=== PATIENT | female | born 1985 | race Caucasian/White ===

== ENCOUNTER → 2020-12-28 13:35 | Outpatient (BNVA) | payer BC, SELFPAY | PROVIDERS: Family Provider Family Medicine; PCP Family Medicine; Visit Provider Internal Medicine | DX: E03.9 Hypothyroidism, unspecified (principal); E04.1 Nontoxic single thyroid nodule; E55.9 Vitamin D deficiency, unspecified; M79.10 Myalgia, unspecified site | CPT/HCPCS: 99204 ==

== ENCOUNTER 2020-12-28 14:56 | Outpatient (CLI) | payer BC, SELFPAY ==
[2020-12-28 16:02] LABS: 25 Hydroxy Vitamin D 7 ng/mL (30-100); Thyroid Stimulating Hormone 1.54 uIU/mL (0.27-4.20)
[2020-12-28 22:00] LABS: Free T4 Free Thyroxine 1.39 ng/dL (0.82-1.77)
== END 2020-12-28 14:57 | disposition home or self-care (01) ==
PROVIDERS: PCP Family Medicine; Visit Provider Internal Medicine
DX: E03.9 Hypothyroidism, unspecified (principal); E04.1 Nontoxic single thyroid nodule
CPT/HCPCS: 36415; 82306; 84439; 84443

== ENCOUNTER 2021-04-04 08:54 | Outpatient (CLI) | payer BC, SELFPAY ==
--- NOTE | 2021-04-04 08:59 | MR_ITS ---
WS: [id number] MRI HEAD WITH CONTRAST WITH ATTENTION TO THE INTERNAL AUDITORY CANALS TECHNIQUE: Sagittal T1, T2 axial, T2 axial flair, axial susceptibility weighted imaging, axial diffus ion weighted images, and coronal T2 images were obtained. Pre and post T1 axial and post T1 coronal i mages. ADC and FSPGR images. Post gadolinium images with attention to the internal auditory canals. A xial fiesta imaging. CLINICAL INFORMATION: DIZZINESS AND GIDDINESS COMPARISON: None. FINDINGS: No evidence of restricted diffusion to suggest acute ischemia. Ventricular system and basal cisterns are patent. A few incidental tiny foci of T2 hyperintensity in the left frontal periventricular white matter. No other suspicious intracranial signal abnormalities. Normal posterior fossa. Normal vascul ar flow voids at the skull base. No extra-axial fluid collections. No evidence of mass or mass effect . Paranasal sinuses and mastoid air cells well aerated. No hemosiderin on the susceptibly weighted im ages. Proximal 7th and 8th cranial nerves are normal in appearance. Normal trigeminal nerve root entry zone s. No evidence of enhancing IAC or CP angle mass. Normal optic chiasm and pituitary infundibulum. Nor mal cavernous sinuses and Meckel's cave. No abnormal gadolinium enhancement. Normal visualized dural venous sinuses. MR/MR iac's wo/w con* [id number] IMPRESSION: 1. No evidence of restricted diffusion to suggest acute ischemia. 2. Proximal 7th and 8th cranial nerves are normal in appearance. No evidence o f enhancing IAC or CP angle mass. 3. Normal trigeminal nerve root entry zones. 4. Paranasal sinuses and mastoid air cells are well aerated. 5. No other significant findings.
[2021-04-04] MEDS: gadobenate dimeglumine 20 mL vial IV (10:09)
== END 2021-04-04 08:55 | disposition home or self-care (01) ==
LOC: RADSHAW 08:58
PROVIDERS: PCP Family Medicine; Visit Provider Specialist
DX: R42 Dizziness and giddiness (principal)
CPT/HCPCS: 70553; A9577

== ENCOUNTER → 2021-07-26 09:12 | Outpatient (BNVA) | payer BC, SELFPAY | PROVIDERS: PCP Family Medicine; Visit Provider Internal Medicine | DX: E03.9 Hypothyroidism, unspecified (principal); E04.1 Nontoxic single thyroid nodule; E55.9 Vitamin D deficiency, unspecified; M79.10 Myalgia, unspecified site; R51.9 Headache, unspecified; Z87.891 Personal history of nicotine dependence | CPT/HCPCS: 99214 ==

== ENCOUNTER 2021-12-31 08:21 | Outpatient (CLI) | payer BC, SELFPAY ==
--- NOTE | 2021-12-31 08:45 | US_ITS ---
WS: [id number] THYROID ULTRASOUND HISTORY: Check for changes in the nodule COMPARISON: None available. Right lobe: 1.7 cm x 1.1 cm x 4.4 cm (w x ap x l). Volume: 4.2 cm3. There is a very heterogeneous nodular gland. No discrete well-formed nodules. Mild nodularity the con tour of the gland. No increased vascularity. Left lobe: 1.5 cm x 1.1 cm x 4.0 cm (w x ap x l). Volume: 3.3 cm3. Mildly heterogeneous nodular gland. No discrete well-formed nodule. No increased vascularity. There a re small benign appearing lymph nodes in the LEFT cervical chain. Isthmus: 0.3 cm. US/US thyroid [id number] IMPRESSION: 1. Normal size heterogeneous nodular thyroid gland. Slightly greater nodularit y within the lateral RIGHT gland. There are no discrete well-formed nodule iden tified for measurement or biopsy. 2. No prior study for comparison available.
== END 2021-12-31 08:22 | disposition home or self-care (01) ==
PROVIDERS: PCP Family Medicine; Visit Provider Internal Medicine
DX: E04.1 Nontoxic single thyroid nodule (principal)
CPT/HCPCS: 76536

== ENCOUNTER → 2024-01-14 11:10 | Outpatient (BNVA) | payer OTHER, SELFPAY | PROVIDERS: PCP Family Medicine; Visit Provider Family Medicine | DX: Z00.00 Encounter for general adult medical examination without abnormal findings (principal); E03.8 Other specified hypothyroidism; E06.3 Autoimmune thyroiditis; E55.9 Vitamin D deficiency, unspecified | CPT/HCPCS: 80053; 80061; 82306; 84443; 85025; 86038 ==

== ENCOUNTER 2024-01-25 03:11 | Emergency (ER) | payer OTHER, SELFPAY ==
[2024-01-25 03:20] VITALS: BP 165/82; PULSE 87; RESP 18; TEMP 36.8; O2SAT 96; BMI 31.3
--- NOTE | 2024-01-25 03:32 | W.ED.ABDPA2 ---
HPI - Abdominal Pain General: Chief Complaint: Abdominal Pain Stated Complaint: Left abdomen pain , L flank pain Time Seen by Provider: 01/25/24 03:14 History of Present Illness: Patient presents to the ER with complaints of left lower quadrant pain in the front that radiates to the back. Patient states the pain is worse when she is walking improves when she is lying flat. Patient correlates the pain with what she felt like when she had an ovarian cyst and she had with her son. Patient says she is not currently. Patient has had nausea but believes it is secondary to the pain. Patient also believes she has had some mild urinary retention as she is only urinated 1 time during her shift today. Patient denies any fevers chills Review of Systems General: Reports: 10 or more systems reviewed and unremarkable except in HPI and below PFSH ED PFSH: Medical History Hypothyroidism Surgical History History of cryosurgery cervical Family History Father Congestive heart failure (CHF) CAD (coronary artery disease) Mother Thyroid disease Grandmother Breast cancer Other Cancer Diabetes Heart failure Hyperlipidemia Hypertension Social History Smoking and tobacco/nicotine status: former use of tobacco/nicotine Quit status (tobacco/nicotine): has quit using Year quit tobacco: 2012 Second hand smoke exposure: No Alcohol intake: current Alcohol intake frequency: holidays/special occasions only Substance/Drug Use: never Adopted: No Lives independently: Yes Household members: spouse and children Housing: House Marital status: Number of children: 2 Highest education level completed: Bachelor's Degree service: No Current occupational status: employed Current occupation: RN for [employer] Sexually active: Yes Do you think of yourself as: Straight/Heterosexual Current gender identity: Female Special mekhi needs: No Agree to transfusion: Yes Physical Exam Const: COMMON NORMALS: no acute distress, average body habitus, patient oriented x3, no limitations, healthy appearing, alert and well nourished HENMT: COMMON NORMALS: normocephalic, atraumatic, hearing grossly normal bilaterally, external ears normal, Normal external nose present, moist oral mucous membranes and oropharynx normal HEAD & SCALP: normocephalic and atraumatic NOSE: Normal external nose present EXTERNAL EAR: Yes external ears normal Neck/C-Spine: COMMON NORMALS: no JVD Chest: COMMONS NORMALS: normal inspection of the chest and normal palpation of entire chest wall Resp: COMMON NORMALS: normal respiratory effort, No retractions, No use of accessory muscles and clear to auscultation bilaterally AUSCULTATION: clear to auscultation bilaterally Cardio: COMMON NORMALS: no JVD, regular rate, regular rhythm, S1 normal heart sound present, S2 normal heart sound present, No gallops present (Cardio), No clicks present (Cardio), No murmurs present (Cardio) and No rub (Cardio) RATE: regular rate RHYTHM: regular rhythm HEART SOUNDS: S1 normal heart sound present and S2 normal heart sound present GI: COMMON NORMALS: Normal to inspection, nondistended, normoactive bowel sounds present, Soft to palpation, No hepatosplenomegaly present and no masses; negative for non-tender (Tender to palpation left lower quadrant) PALPATION: Yes Soft to palpation and Yes No hepatosplenomegaly present Neuro: COMMON NORMALS: patient oriented x3 SENSORIUM/ORIENTATION: Yes alert Course Vital Signs: Vital signs: Vital Signs Temperature 98.2 F 01/25/24 03:20 Pulse Rate 87 01/25/24 03:20 Respiratory Rate 18 01/25/24 03:20 Blood Pressure 165/82 01/25/24 03:20 Pulse Oximetry 96 01/25/24 03:20 MDM - Abdominal Pain Medical Decision Making Patient lab work CBC CMP hCG and urinalysis as well as abdomen pelvis CT scan, CT scan showed moderate left hydro with a 2 mm calculus at the left UVJ, patient was given Toradol and Zofran which improved her pain. These results was discussed with the patient. Patient be discharged with Toradol and Zofran. Differential Diagnosis Likely abdominal pain; Unlikely acute appendicitis, calculus of kidney, constipation, diverticulitis, endometriosis, gastroenteritis, pancreatitis or small bowel obstruction Medical Records I reviewed the patient's medical records. Lab Data I reviewed the patient's lab results. 01/25/24 03:31 01/25/24 03:31 Labs/Radiology: Radiology Impressions Abdomen/Pelvis CT 01/25/24 04:02 IMPRESSION: Moderate left hydroureteronephrosis with 2 mm calculus at the left UVJ. Laboratory Results WBC 12.01 10^3/uL (3.29-11.43) H 01/25/24 03:31 RBC 4.94 10^6/uL (3.85-5.65) 01/25/24 03:31 Hgb 13.30 g/dL (11.27-16.99) 01/25/24 03:31 Hct 42.3 % (36-47) 01/25/24 03:31 MCV 85.6 fl (85-98) 01/25/24 03:31 MCH 26.9 pg (27-33) L 01/25/24 03:31 MCHC 31.4 g/dL (30-55) 01/25/24 03:31 RDW 14.0 % (12.1-15.1) 01/25/24 03:31 Plt Count 305 10^3/cmm (157-399) 01/25/24 03:31 MPV 11.4 fL (7.4-10.4) H 01/25/24 03:31 Neut % (Auto) 84.8 % 01/25/24 03:31 Lymph % (Auto) 9.9 % 01/25/24 03:31 [place] % (Auto) 4.2 % 01/25/24 03:31 Eos % (Auto) 0.2 % 01/25/24 03:31 Baso % (Auto) 0.5 % 01/25/24 03:31 Neut # (Auto) 10.18 10^3/uL (1.8-7.7) H 01/25/24 03:31 Lymph # (Auto) 1.2 10^3/uL (0.8-4.8) 01/25/24 03:31 [place] # (Auto) 0.5 10^3/uL (0.2-0.9) 01/25/24 03:31 Eos # (Auto) 0.0 10^3/uL (0.0-0.8) 01/25/24 03:31 Baso # (Auto) 0.1 10^3/uL (0.0-0.1) 01/25/24 03:31 Nucleated RBC % (auto) 0 % 01/25/24 03:31 Nucleated RBCs # 0.0 /100WBC 01/25/24 03:31 Sodium 137 mmol/L (136-145) 01/25/24 03:31 Potassium 4.0 mmol/L (3.5-5.1) 01/25/24 03:31 Chloride 100 mmol/L (98-107) 01/25/24 03:31 Carbon Dioxide 25 mmol/L (22-29) 01/25/24 03:31 Anion Gap 16.0 (5-19) 01/25/24 03:31 BUN 18 mg/dL (6-20) 01/25/24 03:31 Creatinine 1.1 mg/dL (0.5-0.9) H 01/25/24 03:31 GFR Calculation 55.6 mL/min (90-130) L 01/25/24 03:31 Glucose 127 mg/dL (65-115) H 01/25/24 03:31 Calculated Osmolality 287 mOsm/kg (285-295) 01/25/24 03:31 Calcium 9.2 mg/dL (8.5-10.5) 01/25/24 03:31 Total Bilirubin 0.4 mg/dL (0.15-1.2) 01/25/24 03:31 AST 18 U/L (0-32) 01/25/24 03:31 ALT 21 U/L (0-33) 01/25/24 03:31 Alkaline Phosphatase 151 U/L (35-105) H 01/25/24 03:31 Total Protein 7.4 g/dL (6.6-8.7) 01/25/24 03:31 Albumin 4.5 g/dL (3.5-5.2) 01/25/24 03:31 Globulin 2.9 g/dL (1.3-4.6) 01/25/24 03:31 HCG, Qual Negative (Negative) 01/25/24 03:31 Urine Color Yellow (Yellow) 01/25/24 03:31 Urine Appearance Turbid (CLEAR) A 01/25/24 03:31 Urine pH 5 (5-7) 01/25/24 03:31 Ur Specific [place] 1.030 (1.005-1.030) 01/25/24 03:31 Urine Protein Neg (Negative) 01/25/24 03:31 Urine Glucose (UA) Norm (Normal) 01/25/24 03:31 Urine Ketones 2+ (Negative) H 01/25/24 03:31 Urine Blood Neg (Negative) 01/25/24 03:31 Urine Nitrate Negative (Negative) 01/25/24 03:31 Urine Bilirubin Neg (Negative) 01/25/24 03:31 Urine Urobilinogen 1 mg/dL (Negative) H 01/25/24 03:31 Ur Leukocyte Esterase Negative (Negative) 01/25/24 03:31 Urine RBC 0-4 /hpf (0-2) H 01/25/24 03:31 Urine WBC 5-10 /hpf (0-5) H 01/25/24 03:31 Ur Squamous Epith Cells 5-10 /hpf (0-5) H 01/25/24 03:31 Amorphous Sediment 3+ /hpf 01/25/24 03:31 Urine Bacteria 2+ /hpf (NONE) H 01/25/24 03:31 Urine Mucus 1+ /hpf 01/25/24 03:31 All radiology interpretation(s) finalized by discharge Discharge Plan Discharge Patient Disposition: Home Clinical Impression: Calculus of kidney Condition: Stable Prescriptions: New ondansetron HCl 4 mg tablet 4 mg PO Q8H PRN (Reason: nausea and vomiting) Qty: 14 0RF ketorolac 10 mg tablet 10 mg PO Q6H PRN (Reason: pain) Qty: 14 0RF Rx Instructions: maximum total duration of 5 days from all oral, intranasal, or parenteral formulations No Action levothyroxine 50 mcg tablet 50 mcg PO DAILY Qty: 60 0RF Discharge Orders: Discharge ED (Routine); Ordered 01/25/24 Ordered By: Tex Gibbs Referrals: Preeti Villatoro MD [Primary Care Provider] - 1 week Patient Instructions: Flank Pain (ED), Kidney Stones, How to Strain Your Urine (ED) Activity Restrictions/Additional Instructions: Your CT scan showed you have a 2 mm stone at the left UVJ. Push plenty fluid, take your medicine as prescribed. Follow-up with PCP for further evaluation and treatment as needed. Coding Level of Care Code ED [facility] for Toñito Cornelius
[2024-01-25 03:38] LABS: Basophils # 0.1 10^3/uL (0.0-0.1); Basophils % 0.5 %; Eosinophils % 0.2 %; Hematocrit 42.3 % (36-47); Lymphocytes # 1.2 10^3/uL (0.8-4.8); Lymphocytes % 9.9 %; Mean Corpuscular HGB Conc 31.4 g/dL (30-55); Mean Corpuscular Hemoglobin 26.9 pg (27-33); Mean Corpuscular Volume 85.6 fl (85-98); Mean Platelet Volume 11.4 fL (7.4-10.4); Monocytes # 0.5 10^3/uL (0.2-0.9); Monocytes % 4.2 %; Neutrophils # 10.18 10^3/uL (1.8-7.7); Neutrophils % 84.8 %; Nucleated Red Blood Cells % 0 %; Platelet Count 305 10^3/cmm (157-399); Red Blood Count 4.94 10^6/uL (3.85-5.65); White Blood Count 12.01 10^3/uL (3.29-11.43)
[2024-01-25 03:54] LABS: HCG Qualitative Urine. Negative (Negative)
[2024-01-25 03:59] LABS: Add Urine Microscopic? YES; Alanine Aminotransferase 21 U/L (0-33); Albumin Level 4.5 g/dL (3.5-5.2); Alkaline Phosphatase 151 U/L (35-105); Amorphous Sediment Urine 3+ /hpf; Aspartate Amino Transferase 18 U/L (0-32); Bacteria Urine 2+ /hpf; Bilirubin Urine Neg (Negative); Blood Urea Nitrogen 18 mg/dL (6-20); Blood Urine Neg (Negative); Calcium 9.2 mg/dL (8.5-10.5); Carbon Dioxide 25 mmol/L (22-29); Chloride 100 mmol/L (98-107); Creatinine Clr Calc Pharmacy 77.4813; Globulin 2.9 g/dL (1.3-4.6); Glomerular Filtration Rate 55.6 mL/min (90-130); Glucose 127 mg/dL (65-115); Glucose Urine UA Norm (Normal); Ketones Urine 2+ (Negative); Leukocyte Esterase Urine Negative (Negative); Mucus Urine 1+ /hpf; Nitrate Urine Negative (Negative); Osmolality Calculated 287 mOsm/kg (285-295); Protein Urine Neg (Negative); RBC Urine 0-4 /hpf (0-2); Sodium 137 mmol/L (136-145); Total Bilirubin 0.4 mg/dL (0.15-1.2); Total Protein 7.4 g/dL (6.6-8.7); Urine Appearance Turbid (CLEAR); Urine Color Yellow (Yellow); Urobilinogen Urine 1 mg/dL (Negative); pH Urine 5 (5-7)
--- NOTE | 2024-01-25 04:02 | CTR_ITS ---
PROCEDURE INFORMATION: Exam: CT Abdomen And Pelvis With Contrast Exam date and time: 01/25/2024 4:18 AM Age: 38 years old Clinical indication: Abdominal pain; Localized; Left lower quadrant (llq); Prior surgery; Surgery date: 6+ months; Surgery type: Cervical cryosurgery; Patient HX: C/O llq pain with nausea; Additional info: Llq abd pain TECHNIQUE: Imaging protocol: Computed tomography of the abdomen and pelvis with contrast. Radiation optimization: All CT scans at this facility use at least one of these dose optimization techniques: automated exposure control; mA and/or kV adjustment per patient size (includes targeted exams where dose is matched to clinical indication); or iterative reconstruction. Contrast material: OMNI 350; Contrast volume: 100 ml; Contrast route: INTRAVENOUS (IV); COMPARISON: No relevant prior studies available. RADIATION DOSE METRICS: Total DLP (mGy-cm): 788.98 FINDINGS: Diaphragm: Moderate hiatal hernia. New Liver: Normal appearance of the liver. Gallbladder and bile ducts: No calcified stones or ductal dilation. Pancreas: No ductal dilation. Spleen: Unremarkable. Adrenal glands: Unremarkable. Kidneys and ureters: Moderate left hydroureteronephrosis and delayed nephrogram with a 2 mm calculus at the left UVJ. No right hydronephrosis or renal or ureteral calculi. Stomach and bowel: No obstruction. No mucosal thickening. Appendix: Normal appendix. Intraperitoneal space: No free air. No significant fluid collection. Vasculature: Unremarkable. Lymph nodes: No enlarged lymph nodes. Urinary bladder: Unremarkable as visualized. Reproductive: Unremarkable as visualized. Bones/joints: Unremarkable. No acute fracture. Soft tissues: Unremarkable. CT/CT abdomen pelvis w con* [id number] IMPRESSION: Moderate left hydroureteronephrosis with 2 mm calculus at the left UVJ.
[2024-01-25] MEDS: sodium chloride 0.9% 1,000 ML 999 ML IV (04:16)
[2024-01-25] MEDS: iohexol 350 mg/mL 500 mL Btl (per mL) IV (04:19)
[2024-01-25] MEDS: ondansetron 2 mg/ML SDV 2 mL 4 MG IVP (04:31)
[2024-01-25] MEDS: ketorolac 30 mg/mL INJ IVP (04:36)
== END 2024-01-25 05:15 | disposition home or self-care (01) ==
PROVIDERS: Emergency Provider Emergency Medicine; PCP Family Medicine
DX: N13.2 Hydronephrosis with renal and ureteral calculous obstruction (principal); Z87.891 Personal history of nicotine dependence
CPT/HCPCS: 74177; 80053; 81001; 81025; 85025; 96361; 96374; 96375; 99285; J1885; J2405; J7030; Q9967

== ENCOUNTER → 2024-02-23 10:59 | Outpatient (BNVA) | payer OTHER, SELFPAY | PROVIDERS: PCP Family Medicine; Visit Provider Family Medicine | DX: Z30.9 Encounter for contraceptive management, unspecified (principal) | CPT/HCPCS: 81025 ==

== ENCOUNTER → 2024-03-03 07:32 | Outpatient (BNVA) | payer OTHER, SELFPAY | PROVIDERS: PCP Family Medicine; Visit Provider Family Medicine | DX: R76.8 Other specified abnormal immunological findings in serum (principal); E03.8 Other specified hypothyroidism; E06.3 Autoimmune thyroiditis | CPT/HCPCS: 84443; 86038 ==

== ENCOUNTER → 2024-06-11 13:14 | Outpatient (BNVA) | payer SELFPAY | PROVIDERS: PCP Family Medicine; Visit Provider Family Medicine | DX: E03.8 Other specified hypothyroidism (principal); E06.3 Autoimmune thyroiditis | CPT/HCPCS: 84443 ==

== ENCOUNTER → 2025-07-15 10:18 | Outpatient (BNVA) | payer OTHER, SELFPAY | PROVIDERS: PCP Family Medicine; Referring Provider Nurse Practitioner Family; Visit Provider Internal Medicine | DX: E06.3 Autoimmune thyroiditis (principal); E03.8 Other specified hypothyroidism; R73.03 Prediabetes | CPT/HCPCS: 36415; 83036; 83525; 84439; 84443; 84480 ==